=== PATIENT | female | born 1970 | race Caucasian/White ===

== ENCOUNTER 2016-11-03 08:25 | Day surgery (SDC) | payer BC ==
[~2016-11-03] VITALS: Ht 167.6 cm; Wt 106.6 kg
[~2016-11-03 08:25] MED LIST: ATIVAN1 MG PO; EFFEXOR XR150 MG PO; LITHIUM CARBON450 MG PO; LORCET 5-325 M1 EACH PO; MULTIPLE VITAM1 EAC4 PO; NEXPLANON68 MG SC; SEROQUEL12.5 MG PO; ZESTORETIC 10-1 EAC1 PO
[2016-11-03 09:36] VITALS: BP 138/84
[2016-11-03] MEDS ORDERED: NORCO 5/3251 TABLET PO (11:51)
[2016-11-03 13:02] LABS: INTERNAL CONTROL VALID? YES
[2016-11-03 13:47] VITALS: BP 128/74
[2016-11-03 15:20] VITALS: BP 114/62
== END 2016-11-03 14:58 | disposition home or self-care (01) ==
LOC: SDC 08:25
PROVIDERS: Surgery
DX: K80.10 Calculus of gallbladder with chronic cholecystitis without obstruction (principal); I10 Essential (primary) hypertension; F32.9 Major depressive disorder, single episode, unspecified; E66.9 Obesity, unspecified; Z68.37 Body mass index [BMI] 37.0-37.9, adult; Z88.1 Allergy status to other antibiotic agents
CPT/HCPCS: 74300; 84703; 88304; 93005; J1170; J1885; J2250; J2405; J2710; J2765; J3010; S0020